=== PATIENT | male | born 1980 | race Caucasian/White ===

== ENCOUNTER → 2019-06-10 11:35 | Outpatient (CLI) | payer OTHER, SELFPAY ==
--- NOTE | 2019-06-10 11:38 | DI.RAD.S_ITS ---
PROCEDURE: XR HIP W PEL IF DONE RT 2V INDICATIONS: hip pain TECHNIQUE: 2 views of the hip were acquired. COMPARISON: None. FINDINGS: Bones: No fractures or dislocations. No suspicious bony lesions. The visualized pelvic ring appears intact. Small os acetabuli noted. Soft tissues: No suspicious soft tissue calcifications or masses. IMPRESSION: No fracture. No osseous lesion. If symptoms and/or clinical suspicion for pathology persists, further assessment with advanced imaging (e.g. CT, MRI or bone scan) may be helpful. Dictated by: Celestina Culver MD, PhD on 06/10/2019 at 16:52 Approved by: Celestina Culver MD, PhD on 06/10/2019 at 16:53
== END ==
PROVIDERS: PCP Hospitalist; Visit Provider Hospitalist
DX: M25.551 Pain in right hip (principal)
CPT/HCPCS: 73502

== ENCOUNTER 2019-07-22 13:45 | Outpatient (RCR) | payer OTHER, SELFPAY ==
--- NOTE | 2019-07-14 15:15 | PT.OIE ---
Current Diagnoses Pain in right hip (07/14/19) Stiffness of right hip, not elsewhere classified (07/14/19) Visit Care Team Role Provider Type Darling Zhao MD Attending Provider Physician Primary Care Provider Specialty: Internal Medicine Address: [address] [place] [address], [facility] Email: Physical Therapy Initial Evaluation PT-OP-A Visit Information Start: 07/14/19 15:02 Freq: Status: Active Protocol: Document 07/14/19 14:30 DCW (Rec: 07/14/19 17:15 DCW [id number]) Out-Patient Physical Therapy Visit Information Visit Information Visit Type Initial Evaluation Visit Start Time 14:30 Visit Stop Time 15:00 Total Visit Minutes 30 Visit Number 1 Number of DIRECTOR CHEMISTRY Visits 0 Evaluation Information Evaluation Date 07/14/19 PT-OP-B Current Condition Start: 07/14/19 15:02 Freq: Status: Active Protocol: Document 07/14/19 14:30 DCW (Rec: 07/14/19 17:15 DCW [id number]) Current Condition History of Current Condition Onset Date 5-6 years Current Complaints occasional tightness and pain of right hip History of Current Condition Pt is a 39 year old male presenting with a 5-6 year history of occasional hip pain , typically after doing heavy work around his house, like spreading stones or mulch. Does note that it will occasionally just occur somewhat spontaneously with no obvious aggravating factors. Pt reports that when he is having a lot of pain, it helps limit it if he rotates his foot externally. Notes he has not had much pain over the past week, but he never really knows what will cause any increased pain. PT-OP-C Subjective Start: 07/14/19 15:02 Freq: Status: Active Protocol: Document 07/14/19 14:30 DCW (Rec: 07/14/19 17:15 DCW [id number]) Patient Questionnaires Lower Extremity Functional Scale LEFS Score 80/80 = 100% LEFS Impairment 0% Impaired (Score 80) PT-OP-F Manual Assessment Start: 07/14/19 15:02 Freq: Status: Active Protocol: Document 07/14/19 14:30 DCW (Rec: 07/15/19 11:38 DCW [id number]) Manual Assessments Soft Tissue Assessment Soft Tissue Mobility Assessment Right piriformis tightness and tenderness to palpation 2/4: Pain with wincing. No noted pain or tenderness along trochanter, TFL, or ITB Joint Mobility Assessment Joint Mobility Assessment Hip joint largely WNL, however noticeable soft tissue restriction due to general inflexibility. PT-OP-K Range of Motion Start: 07/14/19 15:02 Freq: Status: Active Protocol: Document 07/14/19 14:30 DCW (Rec: 07/15/19 11:38 DCW [id number]) Hip Goniometric Range of Motion Hip Active Hip ROM WFL Yes Hip ROM Limitations Hip ROM Limitations Soft Tissue Tightness Comments Largely WNL, however soft tissue tightness limits end- range, particularly with flexion with a straight leg PT-OP-L Special Tests Start: 07/14/19 15:02 Freq: Status: Active Protocol: Document 07/14/19 14:30 DCW (Rec: 07/15/19 11:38 DCW [id number]) Special Tests Lumbar Spine Special Tests Anterior SI Shear Test Results Negative Lateral SI Compression Test Results Negative Slump Test Results Negative Hip Special Tests Mendoza's Compression Test Results Negative Straight Leg Raise Test Results Limited to 40? d/t HS tightness Scour Test Test Results Negative Piriformis Test Results Tightness, tenderness DEUCE Test Results WNL PT-OP-M Strength Start: 07/14/19 15:02 Freq: Status: Active Protocol: Document 07/14/19 14:30 DCW (Rec: 07/15/19 11:38 DCW [id number]) Hip Strength Hip Manual Muscle Testing Bilateral Flexion (L2) 5 Normal Extension (S1) 5 Normal Abduction 5 Normal Adduction 5 Normal External Rotation 5 Normal Internal Rotation 5 Normal PT-OP-Q Treatments Start: 07/14/19 15:02 Freq: Status: Active Protocol: Document 07/14/19 14:30 DCW (Rec: 07/15/19 11:38 DCW [id number]) Therapeutic Exercises Supine Exercises Piriformis Stretch Supine Exercise Name Figure-4, Alwb-dt-Ktlgoqep shoulder Side right Prone Exercises [place] Stretch Prone Exercise Name [place] stretch for R Piriformis Side right Sitting Exercises Self STM Sitting Exercise Name Use tennis ball for STM Side right Piriformis Stretch Sitting Exercise Name Seated figure-4 Side right PT-OP-T Assessment and Plan Start: 07/14/19 15:02 Freq: Status: Active Protocol: Document 07/14/19 14:30 DCW (Rec: 07/15/19 11:38 DCW [id number]) Physical Therapy Assessment Rehab Potential Rehabilitation Potential Excellent Evaluation Complexity Number of Personal Factors/Comorbidities 0 Number of Body Systems Impaired 1-2 Clinical Presentation at Evaluation Stable Impairments Impairments Functional Mobility,Pain,ROM, Soft Tissue Mobility,Strength Goals Three Impairment SLR to 40? secondary to hamstring tightness Records Assistant Goal (LTG) Pt SLR to 55? to enable enough HS flexibility to better perform a piriformis stretch LTG Duration 09/13/19 Two Impairment Pt has increased symptoms with heavy yard work Assisted Goal (LTG) Pt to be able to perform heavy yard work (spreading stones or mulch) with no instances of right hip pain. LTG Duration 09/13/19 One Impairment Pt does not have an appropriate HEP Short Term Goal (STG) Pt to be independent and complaint with an appropriate HEP STG Duration 08/14/19 Assessment Summary Assessment Pt's assessment largely unremarkable today, pt even admitted he has not really noticed any pain in the past week. Pt's symptoms appear to be due to piriformis tightness . Pt sits with his right leg crossed onto his left knee frequently, and also uses a radio at work, and a bulky pack is in his right back pocket, which he will occasionally sit on, both of which can irritate and shorted the piriformis. Pt in general is fairly inflexible, which his hamstring tightness limiting his ability to properly stretch his piriformis. Pt should benefit from skilled therapy focusing or posterior hip STM, flexibility training, and education to limit aggravating positions. Physical Therapy Plan Frequency and Duration Frequency of Treatment 2x/Week Duration of Treatment 6 weeks Plan of Care Start Date 07/14/19 Plan of Care End Date 08/25/19 Therapeutic Interventions Therapeutic Interventions Home Exercise Program,Joint Mobilizations,Manual Therapy, Patient/Caregiver Education, Self-Care/Home Management,Soft Tissue Mobilization, Therapeutic Exercises Modalities Cold Pack/Ice Massage,Electric Stimulation,Hot Packs, Ultrasound Next Visit Focus/Plan Next Note Type Treatment Note Next Visit Plan STM, Flexibility training
--- NOTE | 2019-07-16 17:34 | PT.OTN ---
Current Diagnoses Pain in right hip (07/16/19) Stiffness of right hip, not elsewhere classified (07/16/19) Physical Therapy Treatment Note PT-OP-A Visit Information Start: 07/14/19 15:02 Freq: Status: Active Protocol: Document 07/16/19 17:23 [facility] (Rec: 07/16/19 17:33 [facility] [id number]) Out-Patient Physical Therapy Visit Information Visit Information Visit Type Treatment Note Visit Start Time 14:30 Visit Stop Time 15:15 Total Visit Minutes 45 Visit Number 2 Evaluation Information Evaluation Date 07/14/19 PT-OP-B Current Condition Start: 07/14/19 15:02 Freq: Status: Active Protocol: Document 07/14/19 14:30 DCW (Rec: 07/14/19 17:15 DCW [id number]) Current Condition History of Current Condition Onset Date 5-6 years Current Complaints occasional tightness and pain of right hip History of Current Condition Pt is a 39 year old male presenting with a 5-6 year history of occasional hip pain , typically after doing heavy work around his house, like spreading stones or mulch. Does note that it will occasionally just occur somewhat spontaneously with no obvious aggravating factors. Pt reports that when he is having a lot of pain, it helps limit it if he rotates his foot externally. Notes he has not had much pain over the past week, but he never really knows what will cause any increased pain. PT-OP-C Subjective Start: 07/14/19 15:02 Freq: Status: Active Protocol: Document 07/16/19 17:23 [facility] (Rec: 07/16/19 17:33 [facility] [id number]) OP-PT Subjective Patient Comments Patient Comments pt reports the majority of his pain is in his lateral hip. He will notice when the pain gets bad that he has to walk with his foot rotated out ( Externally rotated) PT-OP-F Manual Assessment Start: 07/14/19 15:02 Freq: Status: Active Protocol: Document 07/14/19 14:30 DCW (Rec: 07/15/19 11:38 DCW [id number]) Manual Assessments Soft Tissue Assessment Soft Tissue Mobility Assessment Right piriformis tightness and tenderness to palpation 2/4: Pain with wincing. No noted pain or tenderness along trochanter, TFL, or ITB Joint Mobility Assessment Joint Mobility Assessment Hip joint largely WNL, however noticeable soft tissue restriction due to general inflexibility. PT-OP-K Range of Motion Start: 07/14/19 15:02 Freq: Status: Active Protocol: Document 07/14/19 14:30 DCW (Rec: 07/15/19 11:38 DCW [id number]) Hip Goniometric Range of Motion Hip Active Hip ROM WFL Yes Hip ROM Limitations Hip ROM Limitations Soft Tissue Tightness Comments Largely WNL, however soft tissue tightness limits end- range, particularly with flexion with a straight leg PT-OP-L Special Tests Start: 07/14/19 15:02 Freq: Status: Active Protocol: Document 07/14/19 14:30 DCW (Rec: 07/15/19 11:38 DCW [id number]) Special Tests Lumbar Spine Special Tests Anterior SI Shear Test Results Negative Lateral SI Compression Test Results Negative Slump Test Results Negative Hip Special Tests Mendoza's Compression Test Results Negative Straight Leg Raise Test Results Limited to 40? d/t HS tightness Scour Test Test Results Negative Piriformis Test Results Tightness, tenderness DEUCE Test Results WNL PT-OP-M Strength Start: 07/14/19 15:02 Freq: Status: Active Protocol: Document 07/14/19 14:30 DCW (Rec: 07/15/19 11:38 DCW [id number]) Hip Strength Hip Manual Muscle Testing Bilateral Flexion (L2) 5 Normal Extension (S1) 5 Normal Abduction 5 Normal Adduction 5 Normal External Rotation 5 Normal Internal Rotation 5 Normal PT-OP-Q Treatments Start: 07/14/19 15:02 Freq: Status: Active Protocol: Document 07/16/19 17:23 [facility] (Rec: 07/16/19 17:33 [facility] [id number]) Cardio Equipment Treadmill Duration (Minutes) 5 Speed 2.0 Therapeutic Exercises Supine Exercises 3 Supine Exercise Name iliopsoas stretch in teo position Comments with manual resistance 2 Supine Exercise Name ITB stretch with strap 1 Supine Exercise Name hamstring stretch with strap Piriformis Stretch Supine Exercise Name Figure-4, Mapt-db-Wdqblasf shoulder Side right Prone Exercises 1 Prone Exercise Name prone quad stretch [place] Stretch Prone Exercise Name [place] stretch for R Piriformis Side right Sidelying Exercises 1 Sidelying Exercise Name sidelying ITB stretch with manual resistance Manual Therapy Treatment Soft Tissue Mobilization 1 Body Location left sidelying MFR over the right piriformis and ITB Body Position Sidelying Manual Techniques 2 Type manual hip IR/ER stretch in prone PT-OP-T Assessment and Plan Start: 07/14/19 15:02 Freq: Status: Active Protocol: Document 07/16/19 17:23 [facility] (Rec: 07/16/19 17:33 [facility] [id number]) Physical Therapy Assessment Assessment Summary Assessment pt notes his pain is intermittent but in his lateral hip when it appears. His right hip is much tighter than his left but he tolerated all his stretches today. HEP handout was given to him. Physical Therapy Plan Frequency and Duration Frequency of Treatment 2x/Week Duration of Treatment 6 weeks Plan of Care Start Date 07/14/19 Plan of Care End Date 08/25/19 Therapeutic Interventions Therapeutic Interventions Home Exercise Program,Joint Mobilizations,Manual Therapy, Patient/Caregiver Education, Self-Care/Home Management,Soft Tissue Mobilization, Therapeutic Exercises Modalities Cold Pack/Ice Massage,Electric Stimulation,Hot Packs, Ultrasound Next Visit Focus/Plan Next Note Type Treatment Note Next Visit Plan continue with flexibility exercises and MFR over the ITB /piriformis
--- NOTE | 2019-07-20 14:26 | PT.OTN ---
Current Diagnoses Pain in right hip (07/20/19) Stiffness of right hip, not elsewhere classified (07/20/19) Physical Therapy Treatment Note PT-OP-A Visit Information Start: 07/14/19 15:02 Freq: Status: Active Protocol: Document 07/20/19 13:45 DCW (Rec: 07/20/19 14:26 DCW [id number]) Out-Patient Physical Therapy Visit Information Visit Information Visit Type Treatment Note Visit Start Time 13:45 Visit Stop Time 14:30 Total Visit Minutes 45 Visit Number 3 Evaluation Information Evaluation Date 07/14/19 PT-OP-B Current Condition Start: 07/14/19 15:02 Freq: Status: Active Protocol: Document 07/14/19 14:30 DCW (Rec: 07/14/19 17:15 DCW [id number]) Current Condition History of Current Condition Onset Date 5-6 years Current Complaints occasional tightness and pain of right hip History of Current Condition Pt is a 39 year old male presenting with a 5-6 year history of occasional hip pain , typically after doing heavy work around his house, like spreading stones or mulch. Does note that it will occasionally just occur somewhat spontaneously with no obvious aggravating factors. Pt reports that when he is having a lot of pain, it helps limit it if he rotates his foot externally. Notes he has not had much pain over the past week, but he never really knows what will cause any increased pain. PT-OP-C Subjective Start: 07/14/19 15:02 Freq: Status: Active Protocol: Document 07/20/19 13:45 [facility] (Rec: 07/20/19 14:26 DCW [id number]) OP-PT Subjective Patient Comments Patient Comments Pt reports he has been feeling a bit better, felt really stretched out following his last visit. PT-OP-F Manual Assessment Start: 07/14/19 15:02 Freq: Status: Active Protocol: Document 07/14/19 14:30 DCW (Rec: 07/15/19 11:38 DCW [id number]) Manual Assessments Soft Tissue Assessment Soft Tissue Mobility Assessment Right piriformis tightness and tenderness to palpation 2/4: Pain with wincing. No noted pain or tenderness along trochanter, TFL, or ITB Joint Mobility Assessment Joint Mobility Assessment Hip joint largely WNL, however noticeable soft tissue restriction due to general inflexibility. PT-OP-K Range of Motion Start: 07/14/19 15:02 Freq: Status: Active Protocol: Document 07/14/19 14:30 DCW (Rec: 07/15/19 11:38 DCW [id number]) Hip Goniometric Range of Motion Hip Active Hip ROM WFL Yes Hip ROM Limitations Hip ROM Limitations Soft Tissue Tightness Comments Largely WNL, however soft tissue tightness limits end- range, particularly with flexion with a straight leg PT-OP-L Special Tests Start: 07/14/19 15:02 Freq: Status: Active Protocol: Document 07/14/19 14:30 DCW (Rec: 07/15/19 11:38 DCW [id number]) Special Tests Lumbar Spine Special Tests Anterior SI Shear Test Results Negative Lateral SI Compression Test Results Negative Slump Test Results Negative Hip Special Tests Mendoza's Compression Test Results Negative Straight Leg Raise Test Results Limited to 40? d/t HS tightness Scour Test Test Results Negative Piriformis Test Results Tightness, tenderness DEUCE Test Results WNL PT-OP-M Strength Start: 07/14/19 15:02 Freq: Status: Active Protocol: Document 07/14/19 14:30 DCW (Rec: 07/15/19 11:38 DCW [id number]) Hip Strength Hip Manual Muscle Testing Bilateral Flexion (L2) 5 Normal Extension (S1) 5 Normal Abduction 5 Normal Adduction 5 Normal External Rotation 5 Normal Internal Rotation 5 Normal PT-OP-Q Treatments Start: 07/14/19 15:02 Freq: Status: Active Protocol: Document 07/20/19 13:45 DCW (Rec: 07/20/19 14:26 DCW [id number]) Cardio Equipment Treadmill Duration (Minutes) 5 Speed 2.0 Incline 1.0 Therapeutic Exercises Supine Exercises 3 Supine Exercise Name iliopsoas stretch in teo position Comments with manual resistance 2 Supine Exercise Name ITB stretch with strap 1 Supine Exercise Name hamstring stretch with strap Piriformis Stretch Supine Exercise Name Figure-4, Rzyj-co-Rccgqwzn shoulder Side bilateral Sidelying Exercises Reverse Clamshell Sidelying Exercise Name Reverse Clamshell Side right Resistance Lv 3 Equipment Used T-band 1 Sidelying Exercise Name sidelying ITB stretch with manual resistance Manual Therapy Treatment Soft Tissue Mobilization 1 Body Location left sidelying MFR over the right piriformis and ITB Body Position Sidelying Manual Techniques 2 Type manual hip IR/ER stretch in prone PT-OP-T Assessment and Plan Start: 07/14/19 15:02 Freq: Status: Active Protocol: Document 07/20/19 13:45 DCW (Rec: 07/20/19 14:26 DCW [id number]) Physical Therapy Assessment Goals Three Impairment SLR to 40? secondary to hamstring tightness Detention Goal (LTG) Pt SLR to 55? to enable enough HS flexibility to better perform a piriformis stretch LTG Duration 09/13/19 Two Impairment Pt has increased symptoms with heavy yard work Detention Goal (LTG) Pt to be able to perform heavy yard work (spreading stones or mulch) with no instances of right hip pain. LTG Duration 09/13/19 One Impairment Pt does not have an appropriate HEP Short Term Goal (STG) Pt to be independent and complaint with an appropriate HEP STG Duration 08/14/19 Assessment Summary Assessment Pt tolerated treatment well today, not experiencing any specific pain at the moment. Physical Therapy Plan Frequency and Duration Frequency of Treatment 2x/Week Duration of Treatment 6 weeks Plan of Care Start Date 07/14/19 Plan of Care End Date 08/25/19 Therapeutic Interventions Therapeutic Interventions Home Exercise Program,Joint Mobilizations,Manual Therapy, Patient/Caregiver Education, Self-Care/Home Management,Soft Tissue Mobilization, Therapeutic Exercises Modalities Cold Pack/Ice Massage,Electric Stimulation,Hot Packs, Ultrasound Next Visit Focus/Plan Next Note Type Treatment Note Next Visit Plan continue with flexibility exercises and MFR over the ITB /piriformis
--- NOTE | 2019-07-22 14:27 | PT.OTN ---
Current Diagnoses Pain in right hip (07/22/19) Stiffness of right hip, not elsewhere classified (07/22/19) Physical Therapy Treatment Note PT-OP-A Visit Information Start: 07/14/19 15:02 Freq: Status: Active Protocol: Document 07/22/19 13:45 DCW (Rec: 07/22/19 14:26 DCW [id number]) Out-Patient Physical Therapy Visit Information Visit Information Visit Type Treatment Note Visit Start Time 13:45 Visit Stop Time 14:25 Total Visit Minutes 40 Visit Number 4 Evaluation Information Evaluation Date 07/14/19 PT-OP-B Current Condition Start: 07/14/19 15:02 Freq: Status: Active Protocol: Document 07/14/19 14:30 DCW (Rec: 07/14/19 17:15 DCW [id number]) Current Condition History of Current Condition Onset Date 5-6 years Current Complaints occasional tightness and pain of right hip History of Current Condition Pt is a 39 year old male presenting with a 5-6 year history of occasional hip pain , typically after doing heavy work around his house, like spreading stones or mulch. Does note that it will occasionally just occur somewhat spontaneously with no obvious aggravating factors. Pt reports that when he is having a lot of pain, it helps limit it if he rotates his foot externally. Notes he has not had much pain over the past week, but he never really knows what will cause any increased pain. PT-OP-C Subjective Start: 07/14/19 15:02 Freq: Status: Active Protocol: Document 07/22/19 13:45 DCW (Rec: 07/22/19 14:26 DCW [id number]) OP-PT Subjective Patient Comments Patient Comments Pt reports that overall, he is feeling fine, I haven't felt anything there for a while now. PT-OP-F Manual Assessment Start: 07/14/19 15:02 Freq: Status: Active Protocol: Document 07/14/19 14:30 DCW (Rec: 07/15/19 11:38 DCW [id number]) Manual Assessments Soft Tissue Assessment Soft Tissue Mobility Assessment Right piriformis tightness and tenderness to palpation 2/4: Pain with wincing. No noted pain or tenderness along trochanter, TFL, or ITB Joint Mobility Assessment Joint Mobility Assessment Hip joint largely WNL, however noticeable soft tissue restriction due to general inflexibility. PT-OP-K Range of Motion Start: 07/14/19 15:02 Freq: Status: Active Protocol: Document 07/14/19 14:30 DCW (Rec: 07/15/19 11:38 DCW [id number]) Hip Goniometric Range of Motion Hip Active Hip ROM WFL Yes Hip ROM Limitations Hip ROM Limitations Soft Tissue Tightness Comments Largely WNL, however soft tissue tightness limits end- range, particularly with flexion with a straight leg PT-OP-L Special Tests Start: 07/14/19 15:02 Freq: Status: Active Protocol: Document 07/14/19 14:30 DCW (Rec: 07/15/19 11:38 DCW [id number]) Special Tests Lumbar Spine Special Tests Anterior SI Shear Test Results Negative Lateral SI Compression Test Results Negative Slump Test Results Negative Hip Special Tests Mendoza's Compression Test Results Negative Straight Leg Raise Test Results Limited to 40? d/t HS tightness Scour Test Test Results Negative Piriformis Test Results Tightness, tenderness DEUCE Test Results WNL PT-OP-M Strength Start: 07/14/19 15:02 Freq: Status: Active Protocol: Document 07/14/19 14:30 DCW (Rec: 07/15/19 11:38 DCW [id number]) Hip Strength Hip Manual Muscle Testing Bilateral Flexion (L2) 5 Normal Extension (S1) 5 Normal Abduction 5 Normal Adduction 5 Normal External Rotation 5 Normal Internal Rotation 5 Normal PT-OP-Q Treatments Start: 07/14/19 15:02 Freq: Status: Active Protocol: Document 07/22/19 13:45 DCW (Rec: 07/22/19 14:26 DCW [id number]) Cardio Equipment Treadmill Duration (Minutes) 6 Speed 2.4 Incline 1.0 Therapeutic Exercises Supine Exercises 3 Supine Exercise Name iliopsoas stretch in teo position Comments with manual resistance 2 Supine Exercise Name ITB stretch with strap 1 Supine Exercise Name Manual HS stretch Comments Contract/Relax Piriformis Stretch Supine Exercise Name Figure-4, Ckrk-uv-Mquitzfq shoulder Side bilateral Sidelying Exercises Reverse Clamshell Sidelying Exercise Name Reverse Clamshell Side right Resistance Lv 3 Equipment Used T-band 1 Sidelying Exercise Name sidelying ITB stretch with manual resistance Manual Therapy Treatment Soft Tissue Mobilization 1 Body Location left sidelying MFR over the right piriformis and ITB Body Position Sidelying Manual Techniques 2 Type manual hip IR/ER stretch in prone PT-OP-T Assessment and Plan Start: 07/14/19 15:02 Freq: Status: Active Protocol: Document 07/22/19 13:45 DCW (Rec: 07/22/19 14:26 DCW [id number]) Physical Therapy Assessment Goals Three Impairment SLR to 40? secondary to hamstring tightness Fdc Goal (LTG) Pt SLR to 55? 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 LTG Duration Improving - Pt able to mow with no pain One Impairment Pt does not have an appropriate HEP Short Term Goal (STG) Pt to be independent and complaint with an appropriate HEP STG Duration Met Progress Towards Goals Progress Towards Goals Progressing Toward Goals Assessment Summary Assessment Pt doing very well, no longer experiencing the pain that initially brought him into therapy. Pt knowledgeable in regard to appropriate stretching routine. Pt will be discharged at this time, focus on independent HEP. Physical Therapy Plan Frequency and Duration Frequency of Treatment 2x/Week Duration of Treatment 6 weeks Plan of Care Start Date 07/14/19 Plan of Care End Date 08/25/19 Therapeutic Interventions Therapeutic Interventions Home Exercise Program,Joint Mobilizations,Manual Therapy, Patient/Caregiver Education, Self-Care/Home Management,Soft Tissue Mobilization, Therapeutic Exercises Modalities Cold Pack/Ice Massage,Electric Stimulation,Hot Packs, Ultrasound Discharge Physical Therapy Discharge Reasons Goals Met Next Visit Focus/Plan Next Note Type Discharge Summary
== END 2019-08-28 13:21 ==
LOC: PHYS 13:45
PROVIDERS: PCP Hospitalist; Visit Provider Hospitalist
DX: M25.551 Pain in right hip (principal); M25.651 Stiffness of right hip, not elsewhere classified
CPT/HCPCS: 97110; 97140; 97161

== ENCOUNTER → 2019-07-30 09:40 | Outpatient (CLI) | payer OTHER, SELFPAY | PROVIDERS: PCP Hospitalist; Visit Provider Hospitalist | DX: G56.03 Carpal tunnel syndrome, bilateral upper limbs (principal) | CPT/HCPCS: 95885; 95886; 95911 ==

== ENCOUNTER → 2020-11-16 15:45 | Outpatient (CLI) | payer OTHER, SELFPAY ==
--- NOTE | 2020-11-16 15:46 | DI.RAD.S_ITS ---
PROCEDURE: XR LUMBAR SPINE 2-3V INDICATIONS: Acute on chronic lower back pain TECHNIQUE: 3 views of the lumbar spine were acquired. COMPARISON: None. FINDINGS: Bones: 5 [id number] vertebrae are present. There is multilevel trace retrolisthesis throughout the lumbar spine. Moderate foraminal narrowing is noted L5-S1. Mild disc space narrowing is also noted L5-S1. No vertebral body compression fractures. No suspicious bony lesions. Soft tissues: Overlying bowel gas pattern is normal. No suspicious soft tissue calcifications. IMPRESSION: Early degenerative changes noted at L5-S1. Dictated by: Cynthia Mello M.D. on 11/16/2020 at 16:48 Approved by: Cynthia Mello M.D. on 11/16/2020 at 16:48
== END ==
PROVIDERS: PCP Family Medicine; Referring Provider Family Medicine; Visit Provider Family Medicine
DX: S39.012A Strain of muscle, fascia and tendon of lower back, initial encounter (principal); M47.817 Spondylosis without myelopathy or radiculopathy, lumbosacral region; M54.5 Low back pain; G89.29 Other chronic pain; R31.29 Other microscopic hematuria; X58.XXXA Exposure to other specified factors, initial encounter
CPT/HCPCS: 72100; 81001

== ENCOUNTER → 2020-11-16 16:13 | Outpatient (CLI) | payer OTHER, SELFPAY ==
[2020-11-16 16:42] LABS: Bacteria Urine None Seen
[2020-11-16 18:19] LABS: Appearance Urine UA CLEAR; Bilirubin Urine UA NEGATIVE (NEGATIVE); Color Urine UA YELLOW; Glucose Urine UA NEGATIVE (Negative); Ketones Urine UA NEGATIVE (NEGATIVE); Leukocyte Esterase Urine UA NEGATIVE (NEGATIVE); Nitrite Urine UA NEGATIVE (Negative); Occult Blood Urine UA 1+ (Negative); Protein Urine UA NEGATIVE (Negative); Specific Gravity Urine UA 1.025 (1.000-1.035); Urobilinogen Urine UA 0.2 E.U./dL (0.2)
[2020-11-16 18:52] LABS: Culture Indicated Urine Cult Not Indicated; Mucus Urine 1+ (Negative); RBC Urine 0-1/HPF (0-5/HPF); Squamous Epithelial Cell Urine 0-1 /HPF (0-5/HPF); WBC Urine 0-1/HPF (0-5/HPF)
== END ==
PROVIDERS: PCP Family Medicine; Referring Provider Family Medicine; Visit Provider Family Medicine
DX: R31.29 Other microscopic hematuria (principal)
CPT/HCPCS: 81001

== ENCOUNTER → 2020-12-05 10:07 | Outpatient (CLI) | payer OTHER, SELFPAY ==
--- NOTE | 2020-12-05 10:08 | DI.CT.S_ITS ---
PROCEDURE: CT KIDNEY URETER BLADDER (KUB) INDICATIONS: Microscopic hematuria and a smoker TECHNIQUE: Noncontrast 5 mm thick sections acquired from the diaphragms to the symphysis. 5 mm thick coronal and sagittal reformats were then performed. For radiation dose reduction, the following was used: automated exposure control, adjustment of mA and/or kV according to patient size. COMPARISON: None. FINDINGS: Image quality: Excellent. Lung bases: Mild left basilar atelectasis. Heart size is normal. Small hiatal hernia. Urinary system: Both kidneys are normal in size. No kidney stones. No hydronephrosis or perinephric fat stranding. Both ureters appear non-dilated throughout their expected courses. Bladder wall thickness appears mildly thickened; no calcified bladder stones. Other solid organs: Liver is normal in size. Gallbladder is normal. Pancreas is normal in contours. Spleen is normal in size. No adrenal nodules. Peritoneum and bowel: Unenhanced bowel loops demonstrate normal wall thickness and caliber. No free fluid or air. Nodes and vessels: No retroperitoneal or mesenteric adenopathy by size criteria. Aorta and inferior vena cava are normal in caliber. Abdominal wall: No ventral hernias. Pelvis: No free pelvic fluid. No inguinal hernias or adenopathy. Bones: No suspicious bony lesions. No vertebral body compression fractures. IMPRESSION: 1. Bladder wall appears mildly thickened although bladder is not fully distended. 2. No renal stone or hydronephrosis. 3. A cause for microhematuria is not definitively identified. To rule out uroepithelial neoplasm in a patient with microhematuria, CT IVP may be indicated. 4. Small hiatal hernia. Dictated by: Shanice Hu M.D. on 12/05/2020 at 16:56 Approved by: Shanice Hu M.D. on 12/05/2020 at 17:29
== END ==
PROVIDERS: PCP Family Medicine; Referring Provider Family Medicine; Visit Provider Family Medicine
DX: R31.29 Other microscopic hematuria (principal); K44.9 Diaphragmatic hernia without obstruction or gangrene; F17.200 Nicotine dependence, unspecified, uncomplicated
CPT/HCPCS: 74176

== ENCOUNTER → 2020-12-13 15:38 | Outpatient (CLI) | payer OTHER, SELFPAY ==
--- NOTE | 2020-12-13 15:40 | DI.CT.S_ITS ---
PROCEDURE: CT ABDOMEN PELVIS WO/W CON INDICATIONS: Microscopic hematuria in a smoker TECHNIQUE: Optional 5 mm thick noncontrast images acquired from the diaphragm to the symphysis pubis. After the administration of intravenous contrast, 5 mm thick images acquired from the diaphragm to the symphysis pubis after a 10-minute delay. 2 mm thick coronal and sagittal reformats were then performed of the kidneys and ureters. For radiation dose reduction, the following was used: automated exposure control, adjustment of mA and/or kV according to patient size. COMPARISON: [facility], CT, CT KIDNEY URETER BLADDER (KUB), 12/05/2020, 10:11. FINDINGS: Image quality: Excellent. Lung bases: Lung bases are clear. Heart size is normal. Urinary system: Both kidneys are normal in size, without hydronephrosis or nephrolithiasis on pre-contrast images. No perinephric fat stranding. There is normal bilateral renal enhancement. Renal calyces appear normal in morphology when filled with contrast. Opacified portions of both ureters demonstrate normal caliber. Bladder wall thickness is normal. No calcified bladder stones. Other solid organs: Liver is normal in size and enhancement. Gallbladder is unremarkable.. Biliary system is non dilated. Pancreas enhances normally. Spleen is normal in size and enhancement. No adrenal nodules. Peritoneum and bowel: Bowel loops demonstrate normal wall thickness and caliber. No free fluid or air. Nodes and vessels: No retroperitoneal or mesenteric adenopathy by size criteria. Aorta and inferior vena cava are normal in size. Abdominal wall: No ventral hernias. Pelvis: No pathologic free pelvic fluid. No inguinal hernias or adenopathy. Bones: No suspicious bony lesions. No vertebral body compression fractures. IMPRESSION: 1. No visualized cause of hematuria. Dictated by: Cynthia Mello M.D. on 12/13/2020 at 18:02 Approved by: Cynthia Mello M.D. on 12/13/2020 at 18:04
== END ==
PROVIDERS: PCP Family Medicine; Referring Provider Family Medicine; Visit Provider Family Medicine
DX: R31.29 Other microscopic hematuria (principal); F17.200 Nicotine dependence, unspecified, uncomplicated
CPT/HCPCS: 74178; Q9967

== ENCOUNTER → 2020-12-22 15:39 | Outpatient (CLI) | payer OTHER, SELFPAY ==
[2020-12-22 15:43] LABS: Bacteria Urine None Seen
[2020-12-22 15:58] LABS: Appearance Urine UA CLEAR; Bilirubin Urine UA NEGATIVE (NEGATIVE); Color Urine UA YELLOW; Glucose Urine UA NEGATIVE (Negative); Ketones Urine UA NEGATIVE (NEGATIVE); Leukocyte Esterase Urine UA NEGATIVE (NEGATIVE); Nitrite Urine UA NEGATIVE (Negative); Occult Blood Urine UA 2+ (Negative); Protein Urine UA NEGATIVE (Negative); Specific Gravity Urine UA 1.025 (1.000-1.035); Urobilinogen Urine UA 0.2 E.U./dL (0.2); pH Urine UA 5.5 (4.5-8.0)
[2020-12-22 16:15] LABS: Culture Indicated Urine Cult Not Indicated; Mucus Urine 1+ (Negative); RBC Urine 1-5/HPF (0-5/HPF); Squamous Epithelial Cell Urine 1-5 /HPF (0-5/HPF); WBC Urine 1-5/HPF (0-5/HPF)
[2020-12-22 16:28] LABS: Alanine Aminotransferase 36 IU/L (<50); Albumin 4.4 g/dL (3.5-5.0); Albumin Globulin Ratio 1.5 (1.0-2.8); Alkaline Phosphatase 74 U/L (38-126); Aspartate Aminotransferase 27 IU/L (17-59); BUN Creatinine Ratio 7.7 (6-22); Bilirubin Total 0.5 mg/dL (0.2-1.3); Blood Urea Nitrogen 8 mg/dL (9-20); Calcium 9.4 mg/dL (8.4-10.2); Carbon Dioxide 28 mmol/L (22-32); Chloride 105 mmol/L (98-107); Estimated Glomerular Filt Rate > 60.0 mL/min (>60); Glucose 146 mg/dL (70-100); HEMOLYSIS < 15 (0-50); Potassium 3.9 mmol/L (3.4-5.1); Sodium 137 mmol/L (137-145); Total Protein 7.4 g/dL (6.3-8.2)
== END ==
PROVIDERS: PCP Family Medicine; Referring Provider Family Medicine; Visit Provider Family Medicine
DX: R31.29 Other microscopic hematuria (principal)
CPT/HCPCS: 36415; 80053; 81001

== ENCOUNTER → 2021-07-19 15:13 | Outpatient (CLI) | payer OTHER, SELFPAY ==
--- NOTE | 2021-07-19 15:14 | DI.RAD.S_ITS ---
PROCEDURE: XR FOREARM RT 2V INDICATIONS: pain, swelling TECHNIQUE: 2 views of the forearm were acquired. COMPARISON: None. FINDINGS: Bones: No fractures or dislocations. No suspicious bony lesions. Soft tissues: No suspicious soft tissue calcifications or masses. IMPRESSION: No acute osseous abnormality. Dictated by: Renny Canas M.D. on 07/19/2021 at 15:30 Approved by: Renny Canas M.D. on 07/19/2021 at 15:30
== END ==
PROVIDERS: PCP Family Medicine; Referring Provider Family Medicine; Visit Provider Family Medicine
DX: M79.631 Pain in right forearm (principal); M79.89 Other specified soft tissue disorders
CPT/HCPCS: 73090

== ENCOUNTER → 2021-10-26 07:20 | Outpatient (CLI) | payer OTHER, SELFPAY ==
[2021-10-26 07:37] LABS: COVID19 -Nasal RAPID POSITIVE (Negative)
== END ==
PROVIDERS: PCP Family Medicine; Visit Provider Nurse Practitioner Family
DX: U07.1 COVID-19 (principal); Z20.822 Contact with and (suspected) exposure to COVID-19
CPT/HCPCS: 87635